=== PATIENT | female | born 1985 | race Caucasian/White ===

== ENCOUNTER 2016-08-16 12:05 | Emergency (ER) | payer BC ==
[2016-08-16 12:21] VITALS: BP 115/71
[2016-08-16] MEDS ORDERED: methylPREDNISolone 125 MG* 2 ML VIAL IV ONE (12:29)
[2016-08-16] MEDS ORDERED: Albuterol/Ipratropium NEB.SOL* Albuterol 2.5 MG/Ipratropium 0.5 MG 3 ML INH PRN (12:29)
[2016-08-16] MEDS ORDERED: NS 0.9% 1000 ML* 1,000 ML IV ONE (12:30)
[2016-08-16 13:24] LABS: Hematocrit 45 % (35-47); Hemoglobin 14.7 g/dl (12.0-16.0); Mean Corpuscular HGB Conc 33 g/dl (31-36); Mean Corpuscular Hemoglobin 28 pg (27-31); Mean Corpuscular Volume 86 fL (80-97); Mean Platelet Volume 9 um3 (7.4-10.4); Red Blood Count 5.27 10^6/ul (4.0-5.4); Red Cell Distribution Width 14 % (10.5-15); White Blood Count 11.6 10^3/ul (3.5-10.8)
[2016-08-16 13:51] LABS: ALT 13 U/L (7-52); Albumin 4.2 g/dL (3.2-5.2); Alkaline Phosphatase 65 U/L (34-104); BUN/Creatinine Ratio 16.9 (8-20); Blood Urea Nitrogen 15 mg/dL (6-24); C Reactive Protein 1.28 mg/L (< 5.00); CO2 Carbon Dioxide 20 mmol/L (22-32); Calcium 9.1 mg/dL (8.6-10.3); Chloride 107 mmol/L (101-111); EGFR African American 94.5 (>60); EGFR Non-African American 73.5 (>60); Globulin 3.1 g/dL (2-4); Glucose 118 mg/dL (70-100); Sodium 135 mmol/L (133-145); Total Protein 7.3 g/dL (6.4-8.9)
--- NOTE | 2016-08-16 15:30 | ED ---
Walter Lopez Karl, scribed for Geo Montero MD on 08/16/16 at 1251 . Allergic Reaction/Systemic - HPI Summary HPI Summary: 30 y/o F presents w/ c/o a suspected allergic reaction at approx 11:30 this morning. Pt stated that she believes she is having an allergic reaction to something because while she was cleaning, sweeping, and vacuuming her house earlier today she started having trouble breathing. Pt stated that she tried using her nebulizer tx but it did not fully alleviate her sx. Pt also reported hives on her skin diffusely. Pt also took Benadryl ROUSTABOUT and it helped slightly. Hx: asthma. - History of Current Complaint Chief Complaint: EDAsthma Time Seen by Provider: 08/16/16 12:16 Hx Obtained From: Patient Hx Last Menstrual Period: 23 of February Onset/Duration: Sudden Onset Timing: Constant Severity Initially: Moderate Severity Currently: Moderate Pain Intensity: 0 Pain Scale Used: 0-10 Numeric Aggravating Factor(s): Nothing Alleviating Factor(s): OTC Meds, Antihistamines Associated Signs And Symptoms: Positive: Difficulty Breathing - Allergies/Home Medications Allergies/Adverse Reactions: Allergies Allergy/AdvReac Type Severity Reaction Status Date / Time Sulfamethoxazole AdvReac Rash Verified 12/02/15 20:57 w/Trimethoprim [From Bactrim] PMH/Surg Hx/FS Hx/Imm Hx Previously Healthy: Yes Endocrine/Hematology History: Denies: Hx Diabetes Respiratory History: Reports: Hx Asthma - Surgical History Surgery Procedure, Year, and Place: BILATERAL TUBAL LIGATION Infectious Disease History: No Infectious Disease History: Denies: Traveled Outside the [place] in Last 30 Days - Family History Known Family History: Positive: Cardiac Disease Family History: R & n/C - Social History Alcohol Use: Rare Hx Substance Use: No Substance Use Type: Reports: None Hx Tobacco Use: No Smoking Status (MU): Never Smoked Tobacco Review of Systems Constitutional: Negative Eyes: Negative ENT: Negative Cardiovascular: Negative Respiratory: Other - difficulty breahting "tightness" Gastrointestinal: Negative Genitourinary: Negative Musculoskeletal: Negative Positive: Rash - hives diffuse Neurological: Negative Psychological: Normal All Other Systems Reviewed And Are Negative: Yes Physical Exam - Summary Physical Exam Summary: VITAL SIGNS: Reviewed. GENERAL: Patient is a well developed and nourished female with some distress secondary to the shortness of breath. However, --- is able to speak in full sentences. HEAD AND FACE: Normocephalic and atraumatic. EYES: PERRLA, EOMI x 2, No injected conjunctiva. EARS: Hearing grossly intact. Ear canals and tympanic membranes WNL MOUTH: Dry oral mucosa. NECK: Supple, trachea is midline, no adenopathy, no JVD, no carotid bruit. CHEST: Symmetric, No intercostal or abdominal retraction, LUNGS: Diffuse bilateral wheezing and decreased breath sounds.No crackles. CVS: RRR,, S1 and S2 present, no murmurs or gallops appreciated. ABDOMEN: Soft, non-tender. No signs of distention. Positive BS. No rebound, no guarding, and no masses palpated. EXTREMITIES: FROM in all major joints, no edema, no cyanosis or clubbing. NEURO: Alert and oriented x 3. No acute neurological deficits. Speech is normal and follows commands. SKIN: Dry and warm Triage Information Reviewed: Yes Vital Signs On Initial Exam: Initial Vitals Temp Pulse Resp BP Pulse Ox 98.6 F 103 16 115/71 97 08/16/16 12:16 08/16/16 12:16 08/16/16 12:16 08/16/16 12:16 08/16/16 12:16 Vital Signs Reviewed: Yes - [place] Coma Scale Coma Scale Total: 15 Diagnostics - Vital Signs Vital Signs Temp Pulse Resp BP Pulse Ox 08/16/16 12:16 98.6 F 103 16 115/71 97 - Laboratory Result Diagrams: 08/16/16 13:12 08/16/16 14:05 Lab Statement: Any lab studies that have been ordered have been reviewed, and results considered in the medical decision making process. Allergic Reaction Course/Dx - Course Assessment/Plan: 30 y/o F presents w/ c/o a suspected allergic reaction. Pt stated that she believes she is having an allergic reaction to something because while she was cleaning, sweeping, and vacuuming her house earlier today she started having trouble breathing. Pt stated that she tried using her nebulizer tx but it did not fully alleviate her sx. Pt also took Benadryl ROUSTABOUT and it helped slightly. Hx: asthma. In the ED course she was given Duonebs and Solumedrol. After these medications all her symptoms improved. Blood work wnl except for a couple hemolyzed samples. Patient declines repeat of blood work. I believe that her symptoms were induced by allergens which it precipitated her asthma exacerbation. I discussed all the findings and test results with the patient. Patient was instructed to return to the emergency room immediately if any of the symptoms return or worsens. Plan of care was discussed with the patient and understands and agrees. All questions were answered at patient satisfaction. There were no further complaints or concerns. Lung exam before discharge: CTA B/L. Good air exchange. No wheezing or crackles heard. CVS: S1 and S2 present. No murmurs appreciated. Patient is alert and oriented x 3. Patient is hemodynamically stable. Patient will be discharged home with follow up life enrichment assistant in the next 2-3 days - Diagnoses Differential Diagnosis/HQI/PQRI: Positive: Local Allergic Reaction, Urticaria, Other - Asthma exacerbation Provider Diagnoses: Allergic reaction, Asthma exacerbation Discharge - Discharge Plan Condition: Stable Disposition: HOME Prescriptions: Diphenhydramine HCl [Benadryl Allergy] 25 mg PO TID PRN #30 cap PRN Reason: Allergy Symptoms predniSONE TAB* [Deltasone TAB*] 40 mg PO DAILY #10 tab Patient Education Materials: Asthma (ED), Urticaria (ED) Referrals: No Primary Care Phys,NOPCP [Primary Care Provider] - Additional Instructions: Please follow up with your primary care provider. Return to the emergency department for changing or worsening symptoms. The documentation as recorded by the Walter lacey Karl accurately reflects the service I personally performed and the decisions made by me, Geo Montero MD.
== END 2016-08-16 15:34 | disposition home or self-care (01) ==
LOC: ED 12:05
DX: T78.40XA Allergy, unspecified, initial encounter (principal); R06.02 Shortness of breath; R21 Rash and other nonspecific skin eruption; X58.XXXA Exposure to other specified factors, initial encounter; J45.901 Unspecified asthma with (acute) exacerbation
CPT/HCPCS: 36415; 80053; 84702; 85025; 86140; 94640; 96374; 99283; A9270-GY; J2930

== ENCOUNTER 2016-08-21 19:56 | Emergency (ER) | payer BC ==
[2016-08-21 21:08] LABS: Hematocrit 41 % (35-47); Hemoglobin 13.5 g/dl (12.0-16.0); Mean Corpuscular HGB Conc 33 g/dl (31-36); Mean Corpuscular Hemoglobin 28 pg (27-31); Mean Corpuscular Volume 85 fL (80-97); Mean Platelet Volume 8 um3 (7.4-10.4); Red Blood Count 4.88 10^6/ul (4.0-5.4); Red Cell Distribution Width 14 % (10.5-15); White Blood Count 11.8 10^3/ul (3.5-10.8)
[2016-08-21 21:28] LABS: BUN/Creatinine Ratio 21.4 (8-20); Calcium 9.5 mg/dL (8.6-10.3); EGFR African American 124.7 (>60); Globulin 3.1 g/dL (2-4); Total Bilirubin 0.3 mg/dL (0.2-1.0); Total Protein 7.1 g/dL (6.4-8.9)
--- NOTE | 2016-08-21 21:33 | RAD ---
INDICATION: Chest pain COMPARISON: March 12, 2013 TECHNIQUE: PA and lateral dual-energy views were obtained. FINDINGS: Bones/Soft Tissues: There are no acute bony findings. Cardiomediastinal: The cardiomediastinal silhouette is normal. Lungs: There are no infiltrates. There is no pneumothorax. Pleura: There are no pleural effusions. Other: None IMPRESSION: NO ACTIVE DISEASE.
--- NOTE | 2016-08-21 21:37 | ED ---
Radu Lopez Billy, scribed for Isaac Chavez MD on 08/21/16 at 2058 . Complex/Multi-Sys Presentation - HPI Summary HPI Summary: Patient is a 30 year-old female coming to [facility] presenting with general malaise throughout the day. She states that she has been "shaky" and fatigued since this morning, and also complains of a headache. She also reports midsternal chest pain, severity 6/10. However, her chest pain was resolved with 1x NTG. She denies any pain with deep breath. - History Of Current Complaint Chief Complaint: EDChestPainROMI Time Seen by Provider: 08/21/16 20:49 Hx Obtained From: Patient Onset/Duration: Gradual Onset, Lasting Hours, Still Present Timing: Constant Severity Currently: Moderate Severity Initially: Moderate Location: Pain At: - chest pain, headache Character: Typical Headache Aggravating Factor(s): none Alleviating Factor(s): NTG improved chest pain Associated Signs And Symptoms: Positive: Headache, Chest Pain, Other - fatigue, "shaky," - Allergies/Home Medications Allergies/Adverse Reactions: Allergies Allergy/AdvReac Type Severity Reaction Status Date / Time Sulfamethoxazole AdvReac Rash Verified 12/02/15 20:57 w/Trimethoprim [From Bactrim] PMH/Surg Hx/FS Hx/Imm Hx Endocrine/Hematology History: Denies: Hx Diabetes Respiratory History: Reports: Hx Asthma - Surgical History Surgery Procedure, Year, and Place: BILATERAL TUBAL LIGATION - Immunization History Date of Tetanus Vaccine: utd Date of Influenza Vaccine: fall 2015 Infectious Disease History: No Infectious Disease History: Denies: Traveled Outside the [place] in Last 30 Days - Family History Known Family History: Positive: Cardiac Disease - Social History Alcohol Use: Rare Hx Substance Use: No Substance Use Type: Reports: None Hx Tobacco Use: No Smoking Status (MU): Never Smoked Tobacco Review of Systems Positive: Fatigue, Other - "shakes" Positive: Chest Pain Positive: Headache All Other Systems Reviewed And Are Negative: Yes Physical Exam Triage Information Reviewed: Yes Vital Signs On Initial Exam: Initial Vitals Temp Pulse Resp BP Pulse Ox 97.4 F 89 18 132/85 100 08/21/16 20:00 08/21/16 20:00 08/21/16 20:00 08/21/16 20:00 08/21/16 20:00 Vital Signs Reviewed: Yes Appearance: Positive: Well-Appearing, No Pain Distress, Obese Skin: Positive: Warm Eyes: Positive: EUGENIO ENT: Positive: Hearing grossly normal Neck: Positive: Supple Respiratory/Lung Sounds: Positive: Clear to Auscultation, Breath Sounds Present Cardiovascular: Positive: RRR Abdomen Description: Positive: Nontender, Soft Bowel Sounds: Positive: Present Neurological: Positive: Sensory/Motor Intact, Alert, Oriented to Person Place, Time Psychiatric: Positive: Affect/Mood Appropriate - [place] Coma Scale Coma Scale Total: 15 Diagnostics - Vital Signs Vital Signs Temp Pulse Resp BP Pulse Ox 08/21/16 20:00 97.4 F 89 18 132/85 100 - Laboratory Lab Results: Lab Results 08/21/16 08/21/16 Range/Units 21:00 21:00 WBC 11.8 H (3.5-10.8) 10^3/ul RBC 4.88 (4.0-5.4) 10^6/ul Hgb 13.5 (12.0-16.0) g/dl Hct 41 (35-47) % MCV 85 (80-97) fL MCH 28 (27-31) pg MCHC 33 (31-36) g/dl RDW 14 (10.5-15) % Plt Count 202 (150-450) 10^3/ul MPV 8 (7.4-10.4) um3 Neut % (Auto) 77.9 (38-83) % Lymph % (Auto) 15.4 L (25-47) % [place] % (Auto) 6.5 (1-9) % Eos % (Auto) 0 (0-6) % Baso % (Auto) 0.2 (0-2) % Absolute Neuts (auto) 9.2 H (1.5-7.7) 10^3/ul Absolute Lymphs (auto) 1.8 (1.0-4.8) 10^3/ul Absolute Monos (auto) 0.8 (0-0.8) 10^3/ul Absolute Eos (auto) 0 (0-0.6) 10^3/ul Absolute Basos (auto) 0 (0-0.2) 10^3/ul Absolute Nucleated RBC 0 10^3/ul Nucleated RBC % 0 Sodium 138 (133-145) mmol/L Potassium 4.0 (3.5-5.0) mmol/L Chloride 106 (101-111) mmol/L Carbon Dioxide 27 (22-32) mmol/L Anion Gap 5 (2-11) mmol/L BUN 15 (6-24) mg/dL Creatinine 0.70 (0.51-0.95) mg/dL Est GFR ( Amer) 124.7 (>60) Est GFR (Non-Af Amer) 97.0 (>60) BUN/Creatinine Ratio 21.4 H (8-20) Glucose 95 (70-100) mg/dL Calcium 9.5 (8.6-10.3) mg/dL Total Bilirubin 0.30 (0.2-1.0) mg/dL AST 15 (13-39) U/L ALT 21 (7-52) U/L Alkaline Phosphatase 51 (34-104) U/L Troponin I 0.00 (<0.04) ng/mL Total Protein 7.1 (6.4-8.9) g/dL Albumin 4.0 (3.2-5.2) g/dL Globulin 3.1 (2-4) g/dL Albumin/Globulin Ratio 1.3 (1-3) Result Diagrams: 08/21/16 21:00 08/21/16 21:00 Lab Statement: Any lab studies that have been ordered have been reviewed, and results considered in the medical decision making process. - Radiology CXR Xray Interpretation: No Acute Changes Radiology Interpretation Completed By: Radiologist - EKG 2003 EKG Interpretation: NSR 74 bpm, APCs Re-Evaluation - Re-Evaluation First Eval Re-Evaluation Time: 21:48 Change: Improved Comment: Labs, imagings, results reviewed with the patient. Complex Multi-Symp Course/Dx - Diagnoses Provider Diagnoses: Chest pain Discharge - Discharge Plan Condition: Stable Disposition: HOME Patient Education Materials: Chest Pain (ED) Referrals: Sean ULLOA,Uriel Nunez [Primary Care Provider] - The documentation as recorded by the Radu lcaey Billy accurately reflects the service I personally performed and the decisions made by me, Isaac Chavez MD.
[2016-08-21] MEDS ORDERED: LORazepam TAB(*) 1 MG PO ONE (22:02)
[2016-08-21 22:11] VITALS: BP 120/76
== END 2016-08-22 00:26 | disposition home or self-care (01) ==
LOC: ED 19:56
DX: R07.9 Chest pain, unspecified (principal); R51 Headache; R53.83 Other fatigue
CPT/HCPCS: 36415; 71020; 80053; 84484; 85025; 93005; 99282; A9270-GY

== ENCOUNTER 2017-06-24 15:15 | Emergency (ER) | payer BC ==
[2017-06-24] MEDS ORDERED: diPHENhydraMINE IV* 50 MG/ML 1 ml VIAL (BENADRYL) IV ONE (16:17)
[2017-06-24] MEDS ORDERED: PROCHLORPERAZINE INJ 5 MG/ML 2 ML VIAL IV ONE (16:17)
[2017-06-24] MEDS ORDERED: Ketorolac INJ* 30 MG/ML 1 ML VIAL IV PUSH ONE (16:18)
[2017-06-24] MEDS ORDERED: NS 0.9% 1000 ML* 1,000 ML IV ONE (16:18)
[2017-06-24 17:05] LABS: Hematocrit 41 % (35-47); Hemoglobin 13.9 g/dl (12.0-16.0); Mean Corpuscular HGB Conc 34 g/dl (31-36); Mean Corpuscular Hemoglobin 29 pg (27-31); Mean Corpuscular Volume 86 fL (80-97); Mean Platelet Volume 8 um3 (7.4-10.4); Red Blood Count 4.82 10^6/ul (4.0-5.4); Red Cell Distribution Width 14 % (10.5-15); White Blood Count 8.2 10^3/ul (3.5-10.8)
--- NOTE | 2017-06-24 17:14 | ED ---
Headache - HPI Summary HPI Summary: 31F presents with typical migraine since last night. She states it started behind her eyes and moved to the right side of her head. She states only thing different about this migraine is that she took zofran, triptan and excredin without relief. pain is 7/10 but is not the worst headache of her life. She admits to blurry vision and photophobia which is also typically of her migraines. She denies any fever or neck stiffness. She has had an upper respiratory infection for the past week. She admits to sinus drainage but not a lot of sinus pressure. She admits to nausea but no vomiting. - History Of Current Complaint Chief Complaint: EDHeadache Stated Complaint: MIGRAINE Time Seen by Provider: 06/24/17 16:04 Hx Last Menstrual Period: 23 of February - Allergies/Home Medications Allergies/Adverse Reactions: Allergies Allergy/AdvReac Type Severity Reaction Status Date / Time Sulfamethoxazole AdvReac Rash Verified 12/02/15 20:57 w/Trimethoprim [From Bactrim] PMH/Surg Hx/FS Hx/Imm Hx Endocrine/Hematology History: Denies: Hx Diabetes Respiratory History: Reports: Hx Asthma Neurological History: Reports: Hx Migraine - Surgical History Surgery Procedure, Year, and Place: BILATERAL TUBAL LIGATION - Immunization History Date of Tetanus Vaccine: utd Date of Influenza Vaccine: fall 2015 Infectious Disease History: No Infectious Disease History: Denies: Traveled Outside the [place] in Last 30 Days - Family History Known Family History: Positive: None, Cardiac Disease Family History: R & n/C - Social History Alcohol Use: Rare Hx Substance Use: No Substance Use Type: Reports: None Hx Tobacco Use: No Smoking Status (MU): Never Smoked Tobacco Review of Systems Negative: Fever Negative: Chest Pain Negative: Shortness Of Breath Positive: Nausea Positive: Headache All Other Systems Reviewed And Are Negative: Yes Physical Exam Triage Information Reviewed: Yes Vital Signs On Initial Exam: Initial Vitals Temp Pulse Resp BP Pulse Ox 97.8 F 70 16 140/90 98 06/24/17 15:21 06/24/17 15:21 06/24/17 15:21 06/24/17 15:21 06/24/17 15:21 Vital Signs Reviewed: Yes Appearance: Positive: Pain Distress Skin: Positive: Warm, Dry Head/Face: Positive: Normal Head/Face Inspection Eyes: Positive: Normal, EOMI, EUGENIO, Conjunctiva Clear ENT: Positive: Normal ENT inspection, Pharynx normal, TMs normal Respiratory/Lung Sounds: Positive: Clear to Auscultation, Breath Sounds Present Cardiovascular: Positive: Normal, RRR Abdomen Description: Positive: Nontender, Soft Bowel Sounds: Positive: Present Musculoskeletal: Positive: Normal Neurological: Positive: Sensory/Motor Intact, Alert, Oriented to Person Place, Time, CN Intact II-III, Finger to Nose - [place] Coma Scale Best Eye Response: 4 - Spontaneous Best Motor Response: 6 - Obeys Commands Best Verbal Response: 5 - Oriented Coma Scale Total: 15 Diagnostics - Vital Signs Vital Signs Temp Pulse Resp BP Pulse Ox 06/24/17 15:21 97.8 F 70 16 140/90 98 - Laboratory Lab Results: Lab Results 06/24/17 Range/Units 16:45 WBC 8.2 (3.5-10.8) 10^3/ul RBC 4.82 (4.0-5.4) 10^6/ul Hgb 13.9 (12.0-16.0) g/dl Hct 41 (35-47) % MCV 86 (80-97) fL MCH 29 (27-31) pg MCHC 34 (31-36) g/dl RDW 14 (10.5-15) % Plt Count 203 (150-450) 10^3/ul MPV 8 (7.4-10.4) um3 Neut % (Auto) 61.5 (38-83) % Lymph % (Auto) 25.0 (25-47) % [place] % (Auto) 5.9 (1-9) % Eos % (Auto) 6.9 H (0-6) % Baso % (Auto) 0.7 (0-2) % Absolute Neuts (auto) 5.1 (1.5-7.7) 10^3/ul Absolute Lymphs (auto) 2.1 (1.0-4.8) 10^3/ul Absolute Monos (auto) 0.5 (0-0.8) 10^3/ul Absolute Eos (auto) 0.6 (0-0.6) 10^3/ul Absolute Basos (auto) 0.1 (0-0.2) 10^3/ul Absolute Nucleated RBC 0.01 10^3/ul Nucleated RBC % 0.1 Result Diagrams: 06/24/17 16:45 06/24/17 16:45 Lab Statement: Any lab studies that have been ordered have been reviewed, and results considered in the medical decision making process. Re-Evaluation - Re-Evaluation First Eval Re-Evaluation Time: 17:45 Change: Improved Comment: migraine gone with toradol, compazine, and benadryl Headache Course/Dx - Course Course Of Treatment: 31F presents with typical migraine since last night. She states it started behind her eyes and moved to the right side of her head. She states only thing different about this migraine is that she took zofran, triptan and excredin without relief. pain is 7/10 but is not the worst headache of her life. She admits to blurry vision and photophobia which is also typically of her migraines. She denies any fever or neck stiffness. She has had an upper respiratory infection for the past week. She admits to sinus drainage but not a lot of sinus pressure. on exam normal neuro exam, mild sinus tenderness. treated with compazine, benadaryl and toradol and patient headache resolved. Will treat for viral sinusitis as this point with flonase. stayed if sinus congestion gets worst sent script for augmentin. patient understand and agrees with plan. - Diagnoses Differential Diagnosis/HQI/PQRI: Migraine, Sinus Headache, Tension Headache Provider Diagnoses: Migraine, Rhinosinusitis Discharge - Discharge Plan Condition: Good Disposition: HOME Prescriptions: Amoxicillin/Clavulanate TAB* [Augmentin TAB 500 mg*] 500 mg PO BID #20 tab Fluticasone NASAL SPRAY 50MCG* [Flonase NASAL SPRAY 50MCG*] 2 spray BOTH NARES DAILY #1 btl Patient Education Materials: Migraine Headache (ED), Rhinosinusitis (ED) Referrals: Sean ULLOA,Uriel Nunez [Primary Care Provider] - Jeanette Higuera MD [Medical Doctor] - Additional Instructions: Use saline spray in nose as much as needed Use humidifier in room or can use warm water in bowls Use intranasal steroid one spray each nostril twice a day If sinus congestion worsens take antibiotic twice a day for 10 days, script sent to pharmacy Take Tylenol or ibuprofen for headache every 6 hours Follow up with primary in 5 days if no improvement Follow up with neurology as scheduled about migraines Return to ED if develop any new or worsening symptoms
[2017-06-24 17:21] LABS: Albumin 4.1 g/dL (3.2-5.2); BUN/Creatinine Ratio 14.6 (8-20); Calcium 9.7 mg/dL (8.6-10.3); EGFR African American 93.9 (>60); Globulin 3.2 g/dL (2-4); Total Bilirubin 0.3 mg/dL (0.2-1.0); Total Protein 7.3 g/dL (6.4-8.9)
[2017-06-24 17:52] VITALS: BP 137/86
== END 2017-06-24 17:50 | disposition home or self-care (01) ==
LOC: ED 15:15
DX: G43.909 Migraine, unspecified, not intractable, without status migrainosus (principal); J32.9 Chronic sinusitis, unspecified; R11.0 Nausea
CPT/HCPCS: 36415; 80053; 84702; 85025; 96374; 96375; 99283; J0780; J1200; J1885

== ENCOUNTER 2018-08-04 03:58 | Emergency (ER) | payer BC ==
[2018-08-04 04:04] VITALS: BP 145/87
[2018-08-04] MEDS ORDERED: predniSONE TAB* 20 MG PO ONE (04:04)
[2018-08-04] MEDS ORDERED: Albuterol/Ipratropium NEB.SOL* Albuterol 2.5 MG/Ipratropium 0.5 MG 3 ML ONE (04:08)
[2018-08-04] MEDS ORDERED: Albuterol/Ipratropium NEB.SOL* Albuterol 2.5 MG/Ipratropium 0.5 MG 3 ML INH ONE (04:14)
--- NOTE | 2018-08-04 04:17 | ED ---
Asthma - HPI Summary HPI Summary: Pt is a 32 y/o female who presents to the ED c/o SOB. She woke up about 1 hour ago with SOB and wheezing. Pt has asthma and allergies. She used both her inhaler and two nebulizer treatments, but they did not help her symptoms. Pt denies any abdominal pain, N/V/D, dizziness, fever, body aches, or chills. She had a sinus infection several weeks ago for which she took antibiotics. Pt denies any recent use of steroids other than her daily Advair. She denies any smoking. - History of Current Complaint Chief Complaint: EDAsthma Stated Complaint: ASTHMA REALTED ISSUE Time Seen by Provider: 08/04/18 04:03 Hx Obtained From: Patient Hx Last Menstrual Period: 23 of February Onset/Duration: Sudden Onset, Lasting Hours - 1, Still Present Timing: Constant Pain Intensity: 0 Pain Scale Used: 0-10 Numeric Location/Character: Wheezing Aggravating Symptoms: Nothing Alleviating Symptoms: Nothing Associated Signs and Symptoms: Positive: Shortness of Breath Related History: Similar Episode/Dx as - asthma exacerbation - Allergy/Home Medications Allergies/Adverse Reactions: Allergies Allergy/AdvReac Type Severity Reaction Status Date / Time sulfamethoxazole Allergy Rash Verified 08/04/18 04:04 [From Bactrim] trimethoprim [From Bactrim] Allergy Rash Verified 08/04/18 04:04 PMH/Surg Hx/FS Hx/Imm Hx Endocrine/Hematology History: Denies: Hx Diabetes Cardiovascular History: Denies: Hx Hypertension, Hx Pacemaker/ICD Respiratory History: Reports: Hx Asthma, Hx Seasonal Allergies History: Denies: Hx Renal Disease Sensory History: Denies: Hx Hearing Aid Neurological History: Reports: Hx Migraine Psychiatric History: Denies: Hx Panic Disorder - Surgical History Surgery Procedure, Year, and Place: Bilateral tubal ligation - Immunization History Date of Tetanus Vaccine: Up to date Date of Influenza Vaccine: fall 2015 Infectious Disease History: No Infectious Disease History: Denies: Traveled Outside the [place] in Last 30 Days - Family History Known Family History: Positive: Cardiac Disease - Social History Alcohol Use: Rare Hx Substance Use: No Substance Use Type: Reports: None Hx Tobacco Use: No Smoking Status (MU): Never Smoked Tobacco Review of Systems Negative: Fever, Chills, Other - body aches Positive: Shortness Of Breath Negative: Abdominal Pain, Vomiting, Diarrhea, Nausea Neurological: Other - NEGATIVE: dizziness All Other Systems Reviewed And Are Negative: Yes Physical Exam - Summary Physical Exam Summary: Appearance: Well appearing, no pain distress Skin: warm, dry, reflects adequate perfusion Head/face: normal Eyes: EOMI, EUGENIO ENT: mucous membranes moist Neck: supple, non-tender Respiratory: wheezes on forced expiration, breath sounds diminished Cardiovascular: RRR, pulses symmetrical Abdomen: non-tender, soft Bowel Sounds: present Musculoskeletal: normal, strength/ROM intact Neuro: normal, sensory motor intact, A&Ox3 Triage Information Reviewed: Yes Vital Signs On Initial Exam: Initial Vitals Temp Pulse Resp BP Pulse Ox 98.5 F 108 18 145/87 94 08/04/18 04:00 08/04/18 04:00 08/04/18 04:00 08/04/18 04:00 08/04/18 04:00 Vital Signs Reviewed: Yes Diagnostics - Vital Signs Vital Signs Temp Pulse Resp BP Pulse Ox 08/04/18 04:00 98.5 F 108 18 145/87 94 - Laboratory Lab Statement: Any lab studies that have been ordered have been reviewed, and results considered in the medical decision making process. - Radiology CXR Radiology Interpretation Completed By: ED Physician Summary of Radiographic Findings: Mild hyperinflation. Pending official radiology report. Re-Evaluation - Re-Evaluation First Eval Re-Evaluation Time: 04:33 Change: Improved Comment: Pt feels better after the breathing treatment. Asthma Course/Dx - Course Course Of Treatment: Nurse's notes reviewed. Patient presented with wheezing upon arrival to the ED. Respiratory therapy initiated nebulizer treatment, and presdnisone treatment was administered. Patient much improved with treatments. Chest x-ray shows no infiltrate but has hyperinflation. Continue every 4-6 hour breathing treatments and oral steroids at home. - Diagnoses Differential Diagnosis/HQI/PQRI: Positive: Acute Asthma, Bronchitis, COPD Excerbation, Pleurisy, Pneumonia Provider Diagnoses: Acute asthma exacerbation Discharge - Sign-Out/Discharge Documenting (check all that apply): Patient Departure - Discharge - Discharge Plan Condition: Improved Disposition: HOME Prescriptions: predniSONE TAB* [Deltasone 20 MG TAB*] 40 mg PO DAILY #10 tab Patient Education Materials: Asthma (ED) Print Language: MONEGASQUE Forms: *Work Release Referrals: Sean ULLOA,Uriel Nunez [Primary Care Provider] - Additional Instructions: Breathing treatments every 4-6 hours until well. Humidifier while sleeping. Nebulized saline for humidity. Return with fever, worsened difficulty breathing , new symptoms or other concerns. Call this morning to schedule prompt follow- up with your family doctor. - Billing Disposition and Condition Condition: IMPROVED Disposition: Home - Attestation Statements Document Initiated by Fatoumata: Yes Documenting Scribe: Angeles Casarez Provider For Whom Scribe is Documenting (Include Credential): Aidan Amaro MD Scribe Attestation: Angeles Lopez, scribed for Aidan Amaro MD on 08/04/18 at 0445. Scribe Documentation Reviewed: Yes Provider Attestation: The documentation as recorded by the Angeles lacey accurately reflects the service I personally performed and the decisions made by Aidan byers MD Status of Scribe Document: Viewed
== END 2018-08-04 04:54 | disposition home or self-care (01) ==
LOC: ED 03:58
DX: J45.901 Unspecified asthma with (acute) exacerbation (principal); Z88.2 Allergy status to sulfonamides
CPT/HCPCS: 71045; 99282; A9270-GY; J7512

== ENCOUNTER 2018-08-16 12:38 | Emergency (ER) | payer BC ==
[2018-08-16] MEDS ORDERED: NS 0.9% 1000 ML** 1,000 ML IV ONE (14:04)
[2018-08-16] MEDS ORDERED: diPHENhydraMINE IV* 50 MG/ML 1 ml VIAL (BENADRYL) SLOW PUSH ONE (14:04)
[2018-08-16] MEDS ORDERED: Metoclopramide IV* 5 MG/ML 2 ML VIAL IV SLOW PU ONE (14:04)
[2018-08-16] MEDS ORDERED: Ketorolac INJ* 30 MG/ML 1 ML VIAL IV PUSH ONE (14:04)
--- NOTE | 2018-08-16 14:11 | ED ---
Headache - HPI Summary HPI Summary: This pt is a 32 y/o female presenting to [facility] c/o migraine headache since this morning. She states she has hx of migraines for which she usually takes nortriptyline and eletriptan . Pt reports she has nausea, vomiting, photophobia , phonophobia. She has not been able to keep anything down. Denies fever, chills. Pt notes she has been to the ED for migraine headaches in the past. She states she usually gets a mix of medications including Benadryl. - History Of Current Complaint Chief Complaint: EDHeadache Stated Complaint: HEADACHE/NAUSEA/BLURRED VISION Time Seen by Provider: 08/16/18 13:59 Hx Obtained From: Patient Hx Last Menstrual Period: 23 of February Onset/Duration: Started hours ago, Still Present Currently Pain Is: Current Pain Scale(0-10)= - 8, Severe Timing: Constant, Hours Character: Migraine Location of Headache: Diffuse Aggravating Factor: Nothing Allevating Factors: Nothing Associated Signs And Symptoms: Nausea, Vomiting, Other (Noted In Comments) - POS : photophobia, phonophobia. NEG: fever, chills - Allergies/Home Medications Allergies/Adverse Reactions: Allergies Allergy/AdvReac Type Severity Reaction Status Date / Time sulfamethoxazole Allergy Rash Verified 08/16/18 12:50 [From Bactrim] trimethoprim [From Bactrim] Allergy Rash Verified 08/16/18 12:50 PMH/Surg Hx/FS Hx/Imm Hx Endocrine/Hematology History: Denies: Hx Diabetes Cardiovascular History: Denies: Hx Hypertension, Hx Pacemaker/ICD Respiratory History: Reports: Hx Asthma, Hx Seasonal Allergies History: Denies: Hx Renal Disease Sensory History: Denies: Hx Hearing Aid Neurological History: Reports: Hx Migraine Psychiatric History: Denies: Hx Panic Disorder - Surgical History Surgery Procedure, Year, and Place: Bilateral tubal ligation - Immunization History Date of Tetanus Vaccine: Up to date Date of Influenza Vaccine: fall 2015 Infectious Disease History: No Infectious Disease History: Denies: Traveled Outside the [place] in Last 30 Days - Family History Known Family History: Positive: Cardiac Disease - Social History Alcohol Use: Rare Hx Substance Use: No Substance Use Type: Reports: None Hx Tobacco Use: No Smoking Status (MU): Never Smoked Tobacco Review of Systems Negative: Fever, Chills Positive: Photophobia. Negative: Erythema ENT: Other - POS: phonophobia Negative: Sore Throat Negative: Chest Pain Negative: Shortness Of Breath, Cough Positive: Vomiting, Nausea. Negative: Abdominal Pain Negative: dysuria, hematuria Negative: Myalgia, Edema Negative: Rash Neurological: Other - NEG: dizziness Positive: Headache All Other Systems Reviewed And Are Negative: Yes Physical Exam - Summary Physical Exam Summary: Constitutional: Well-developed, Well-nourished, Alert. (-) Distressed Skin: Warm, Dry HENT: Normocephalic; Atraumatic Eyes: Conjunctiva normal Neck: Musculoskeletal ROM normal neck. (-) JVD, (-) Stridor, (-) Tracheal deviation Cardio: Rhythm regular, rate normal, Heart sounds normal; Intact distal pulses; The pedal pulses are 2+ and symmetric. Radial pulses are 2+ and symmetric. (-) Murmur Pulmonary/Chest wall: Effort normal. (-) Respiratory distress, (-) Wheezes, (-) Rales Abd: Soft, (-) Tenderness, (-) Distension, (-) Guarding, (-) Rebound Musculoskeletal: (-) Edema Lymph: (-) Cervical adenopathy Neuro: Alert, Oriented x3 Psych: Mood and affect Normal Triage Information Reviewed: Yes Vital Signs On Initial Exam: Initial Vitals Temp Pulse Resp BP Pulse Ox 99.7 F 98 16 138/95 96 08/16/18 12:46 08/16/18 12:46 08/16/18 12:46 08/16/18 12:46 08/16/18 12:46 Vital Signs Reviewed: Yes Diagnostics - Vital Signs Vital Signs Temp Pulse Resp BP Pulse Ox 08/16/18 12:46 99.7 F 98 16 138/95 96 - Laboratory Result Diagrams: 08/16/18 14:13 08/16/18 14:13 Lab Statement: Any lab studies that have been ordered have been reviewed, and results considered in the medical decision making process. Re-Evaluation - Re-Evaluation First Eval Re-Evaluation Time: 17:41 Change: Improved Comment: Pt reports she is feeling better. All her symptoms have resolved. Headache Course/Dx - Course Assessment/Plan: Pt is a 32 y/o female who presents with migraine headache since this morning. She states she has hx of migraines for which she usually takes nortriptyline and eletriptan . Pt reports she has nausea, vomiting, photophobia, phonophobia. She has not been able to keep anything down. Denies fever, chills. CBC and BMP were obtained. In the ED course the pt was given IV fluids, Benadryl, Reglan, Toradol. On re-eval pt reports she is feeling better after medications. All her symptoms have resolved. She will be discharged home with follow up from Dr. Berumen, neurology, in 2-3 days. Pt is instructed to return to the ED for any new or worsening symptoms. - Diagnoses Provider Diagnoses: Migraine headache Discharge - Sign-Out/Discharge Documenting (check all that apply): Patient Departure - Discharge home Patient Received Moderate/Deep Sedation with Procedure: No - Discharge Plan Condition: Stable Disposition: HOME Patient Education Materials: Migraine Headache (ED) Referrals: Sean ULLOA,Uriel Nunez [Primary Care Provider] - Joni Berumen MD [Medical Doctor] - Additional Instructions: Follow up with Dr. Berumen, neurologist, in 2-3 days. RETURN TO THE EMERGENCY DEPARTMENT FOR CHANGING OR WORSENING SYMPTOMS. - Attestation Statements Document Initiated by Scribe: Yes Documenting Scribe: Georgia Corrigan Provider For Whom Scribe is Documenting (Include Credential): Lico Soliz MD Scribe Attestation: Georgia Lopez, scribed for Lico Soliz MD on 08/16/18 at [id number]. Status of Scribe Document: Ready
[2018-08-16 14:35] LABS: Hematocrit 42 % (35-47); Hemoglobin 14.1 g/dl (12.0-16.0); Mean Corpuscular HGB Conc 33 g/dl (31-36); Mean Corpuscular Hemoglobin 29 pg (27-31); Mean Corpuscular Volume 86 fL (80-97); Mean Platelet Volume 8.1 fL (7.4-10.4); Platelet Count 212 10^3/ul (150-450); Red Blood Count 4.92 10^6/ul (4.00-5.40); Red Cell Distribution Width 14 % (10.5-15); White Blood Count 8.7 10^3/ul (3.5-10.8)
[2018-08-16 14:54] LABS: BUN/Creatinine Ratio 14.8 (8-20); Calcium 9.6 mg/dL (8.6-10.3); EGFR Non-African American 73.6 (>60)
[2018-08-16 18:06] VITALS: BP 111/76
== END 2018-08-16 18:05 | disposition home or self-care (01) ==
LOC: ED 12:38
DX: G43.909 Migraine, unspecified, not intractable, without status migrainosus (principal); R11.2 Nausea with vomiting, unspecified; Z88.2 Allergy status to sulfonamides
CPT/HCPCS: 36415; 80048; 85027; 96374; 96375; 99282; J1200; J1885; J2765

== ENCOUNTER 2018-11-15 14:34 | Emergency (ER) | payer BC ==
[2018-11-15] MEDS ORDERED: PROCHLORPERAZINE INJ 5 MG/ML 2 ML VIAL IV ONE (16:47)
[2018-11-15] MEDS ORDERED: diPHENhydraMINE IV* 50 MG/ML 1 ml VIAL (BENADRYL) IV ONE (16:47)
[2018-11-15] MEDS ORDERED: NS 0.9% 1000 ML** 1,000 ML IV ONE (16:47)
[2018-11-15] MEDS ORDERED: Ketorolac INJ* 30 MG/ML 1 ML VIAL IV PUSH ONE (16:48)
--- NOTE | 2018-11-15 16:57 | ED ---
Headache - HPI Summary HPI Summary: 33-year-old female presents with headache today. She has a history of migraines. She states that this migraine is 8 out of 10. Not worse headache of her life. She denies any neck stiffness. No fevers. She admits to nausea and vomiting. pain is located at the back of head. It doesn't radiate anywhere. She denies any neck stiffness. No cough. No recent illness. She does admits to some sinus congestion but has history of allergies. She took her normal medication and Tylenol without relief. - History Of Current Complaint Chief Complaint: EDHeadache Stated Complaint: MIGRAINE PER PT Time Seen by Provider: 11/15/18 16:40 Hx Last Menstrual Period: 23 of February - Allergies/Home Medications Allergies/Adverse Reactions: Allergies Allergy/AdvReac Type Severity Reaction Status Date / Time sulfamethoxazole Allergy Rash Verified 08/16/18 12:50 [From Bactrim] trimethoprim [From Bactrim] Allergy Rash Verified 08/16/18 12:50 PMH/Surg Hx/FS Hx/Imm Hx Endocrine/Hematology History: Denies: Hx Diabetes Cardiovascular History: Denies: Hx Hypertension, Hx Pacemaker/ICD Respiratory History: Reports: Hx Asthma, Hx Seasonal Allergies History: Denies: Hx Renal Disease Sensory History: Denies: Hx Hearing Aid Neurological History: Reports: Hx Migraine Psychiatric History: Denies: Hx Panic Disorder - Surgical History Surgery Procedure, Year, and Place: Bilateral tubal ligation - Immunization History Date of Tetanus Vaccine: Up to date Date of Influenza Vaccine: fall 2015 Infectious Disease History: No Infectious Disease History: Denies: Traveled Outside the [place] in Last 30 Days - Family History Known Family History: Positive: Cardiac Disease - Social History Alcohol Use: Rare Hx Substance Use: No Substance Use Type: Reports: None Hx Tobacco Use: No Smoking Status (MU): Never Smoked Tobacco Review of Systems Negative: Fever Positive: Photophobia Negative: Chest Pain Negative: Shortness Of Breath Positive: Vomiting, Nausea Positive: Headache All Other Systems Reviewed And Are Negative: Yes Physical Exam Triage Information Reviewed: Yes Vital Signs On Initial Exam: Initial Vitals Temp Pulse Resp BP Pulse Ox 100.0 F 88 18 141/90 96 11/15/18 14:36 11/15/18 14:36 11/15/18 14:36 11/15/18 14:36 11/15/18 14:36 Vital Signs Reviewed: Yes Appearance: Positive: Well-Appearing Skin: Positive: Warm, Dry Head/Face: Positive: Normal Head/Face Inspection Eyes: Positive: Normal, EOMI, EUGENIO, Conjunctiva Clear ENT: Positive: Normal ENT inspection, Pharynx normal, TMs normal Respiratory/Lung Sounds: Positive: Clear to Auscultation, Breath Sounds Present Cardiovascular: Positive: Normal, RRR Abdomen Description: Positive: Nontender, Soft Bowel Sounds: Positive: Present Musculoskeletal: Positive: Normal Neurological: Positive: Sensory/Motor Intact, Alert, Oriented to Person Place, Time, CN Intact II-III, Finger to Nose Psychiatric: Positive: Normal Diagnostics - Vital Signs Vital Signs Temp Pulse Resp BP Pulse Ox 11/15/18 16:28 98.2 F 74 20 130/86 96 11/15/18 14:36 100.0 F 88 18 141/90 96 - Laboratory Result Diagrams: 11/15/18 16:55 11/15/18 16:55 Lab Statement: Any lab studies that have been ordered have been reviewed, and results considered in the medical decision making process. Re-Evaluation - Re-Evaluation First Eval Re-Evaluation Time: 18:07 Change: Improved Comment: feeling better Second Eval Re-Evaluation Time: 18:59 Comment: feels ready to go home Headache Course/Dx - Course Course Of Treatment: 33-year-old female presents with headache today. She has a history of migraines. She states that this migraine is 8 out of 10. Not worse headache of her life. She denies any neck stiffness. No fevers. She admits to nausea and vomiting. pain is located at the back of head. It doesn' t radiate anywhere. She denies any neck stiffness. No cough. No recent illness. She does admits to some sinus congestion but has history of allergies. She took her normal medication and Tylenol without relief. On exam has normal neuro exam. gave Benadryl and Compazine fluids and feeling better. will give dose of steriod. will prescribe reglan. patient understand and agrees with plan. - Diagnoses Differential Diagnosis/HQI/PQRI: Migraine, Tension Headache, Viral Syndrome Provider Diagnoses: Migraine Discharge - Sign-Out/Discharge Documenting (check all that apply): Patient Departure Patient Received Moderate/Deep Sedation with Procedure: No - Discharge Plan Condition: Good Disposition: HOME Prescriptions: Metoclopramide TAB* [Reglan TAB*] 10 mg PO Q6H PRN #16 tab PRN Reason: Nausea Patient Education Materials: Migraine Headache (ED) Referrals: Sean ULLOA,Uriel Nunez [Primary Care Provider] - Additional Instructions: take reglan every 6 hours for nausea follow up with neurology Return to ED if develop any new or worsening symptoms - Billing Disposition and Condition Condition: GOOD Disposition: Home
[2018-11-15 17:04] LABS: ABS Basophils 0.1 10^3/ul (0-0.2); ABS Eosinophils 0.3 10^3/ul (0-0.6); ABS Lymphocytes 2.1 10^3/ul (1.0-4.8); ABS Monocytes 0.5 10^3/ul (0-0.8); ABS Neutrophils 6.1 10^3/ul (1.5-7.7); Eosinophil % 2.9 %; Hematocrit 42 % (35-47); Hemoglobin 14.1 g/dL (12.0-16.0); Lymphocyte % 23.1 %; Mean Corpuscular HGB Conc 33 g/dL (31-36); Mean Corpuscular Hemoglobin 29 pg (27-31); Mean Corpuscular Volume 86 fL (80-97); Mean Platelet Volume 8.2 fL (7.4-10.4); Platelet Count 209 10^3/uL (150-450); Red Blood Count 4.94 10^6 /uL (3.70-4.87); Red Cell Distribution Width 14 % (10.5-15)
[2018-11-15 17:44] LABS: Albumin 4.2 g/dL (3.2-5.2); Calcium 9.6 mg/dL (8.6-10.3); Magnesium 2.1 mg/dL (1.9-2.7); Potassium 4.3 mmol/L (3.5-5.0); Total Bilirubin 0.5 mg/dL (0.2-1.0)
[2018-11-15 17:48] LABS: Albumin/Globulin Ratio 1.4 (1-3); BUN/Creatinine Ratio 16.3 (8-20); EGFR African American 98.8 (>60); EGFR Non-African American 81.6 (>60); Total Protein 7.2 g/dL (6.4-8.9)
[2018-11-15] MEDS ORDERED: Dexamethasone IV* 4 MG/ML 1 ML (4 MG) IV SLOW PU ONE (18:06)
[2018-11-15 19:11] VITALS: BP 133/84
[2018-11-15 19:14] LABS: HCG Pregnancy 0.31 mIU/mL
== END 2018-11-15 19:11 | disposition home or self-care (01) ==
LOC: ED 14:34
DX: G43.909 Migraine, unspecified, not intractable, without status migrainosus (principal); J45.909 Unspecified asthma, uncomplicated; Z88.2 Allergy status to sulfonamides; Z88.3 Allergy status to other anti-infective agents
CPT/HCPCS: 36415; 80053; 83735; 84702; 85025; 96361; 96374; 96375; 99284; J0780; J1100; J1200; J1885